=== PATIENT | male | born 1990 | race Caucasian/White ===

== ENCOUNTER 2019-12-14 00:33 | Emergency (ER) | payer MEDICAID ==
[~2019-12-14] VITALS: Ht 182.9 cm; Wt 73.0 kg
[2019-12-14] MEDS ORDERED: KETOROLAC 30MG/ML VIAL IM ONE (01:45)
[2019-12-14 02:45] VITALS: BP 119/67
== END 2019-12-14 02:45 | disposition home or self-care (01) ==
LOC: ER 00:33
DX: R07.89 Other chest pain (principal); J45.909 Unspecified asthma, uncomplicated
CPT/HCPCS: 71045; 93005; 96372; 99283; J1885